=== PATIENT | female | born 1960 | race African-American/Black ===

== ENCOUNTER 2017-07-14 13:24 | Observation (INO) | payer BC, MEDICARE ==
[2017-07-14 15:40] LABS: ADD MAN DIFF? NO
[2017-07-14 15:42] LABS: WHITE BLOOD COUNT 5.1 10^3/ul (4.8-10.8)
[2017-07-14 15:42] LABS: BASOPHILS % 0.4 % (0.0-2.0); EOSINOPHILS # 0.1 10^3/ul (0.0-0.5); EOSINOPHILS % 1.2 % (0.0-7.0); HEMATOCRIT 38.3 % (37.0-47.0); HEMOGLOBIN 12.9 g/dl (12.0-16.0); LYMPHOCYTES # 2.3 10^3/ul (0.8-2.9); LYMPHOCYTES % 44.5 % (15.0-51.0); MEAN CORPUSCULAR HEMOGLOBIN 30.5 pg (29.0-33.0); MEAN CORPUSCULAR HGB CONC 33.7 g/dl (32.0-37.0); MEAN CORPUSCULAR VOLUME 90.5 fl (82.0-101.0); MEAN PLATELET VOLUME 9.9 fl (7.4-10.4); MONOCYTE # 0.6 10^3/ul (0.3-0.9); MONOCYTES % 11.9 % (0.0-11.0); NEUTROPHIL # 2.2 10^3/ul (1.6-7.5); PLATELET COUNT 229 10^3/UL (140-415); RED BLOOD COUNT 4.23 10^6/ul (4.20-5.40)
[2017-07-14] MEDS: ASPIRIN 325 MG TAB PO (16:02)
[2017-07-14 16:13] LABS: ALANINE AMINOTRANSFERASE 23 IU/L (13-69); ALBUMIN 4.2 g/dl (3.3-4.9); ALBUMIN/GLOBULIN RATIO 0.91; ALKALINE PHOSPHATASE 101 IU/L (42-121); ANION GAP 16 (8-16); ASPARTATE AMINO TRANSFERASE 31 IU/L (15-46); BILIRUBIN,INDIRECT 0.1 mg/dl (0-1.1); BILIRUBIN,TOTAL 0.1 mg/dl (0.2-1.3); BLOOD UREA NITROGEN 10 mg/dl (7-20); CALCIUM 9.2 mg/dl (8.4-10.2); CARBON DIOXIDE 28 mmol/L (21-31); CHLORIDE 107 mmol/L (97-110); CREATININE 0.69 mg/dl (0.44-1.00); GLUCOSE 104 mg/dl (70-220); POTASSIUM 3.9 mmol/L (3.5-5.1); SODIUM 147 mmol/L (135-144); TOTAL PROTEIN 8.8 g/dl (6.1-8.1)
[2017-07-14 16:27] LABS: TROPONIN-I < 0.012 ng/ml (0.00-0.12)
[2017-07-14] MEDS: NITROGLYCERIN 2% 1 GM OINT PKT TD (16:33)
[2017-07-14] MEDS: SOD CHLORIDE 0.45% 1,000 ML IV (17:59)
[2017-07-14] MEDS ORDERED: ONDANSETRON 4 MG INJ IV ×2 (18:00)
[2017-07-14] MEDS ORDERED: hydrALAzine 20 MG INJ IV (18:00)
[2017-07-14] MEDS ORDERED: NA PHOSPHATE/BIPHOS 133 ML ENEMA PR (18:00)
[2017-07-14] MEDS ORDERED: ACETAMINOPHEN 325 MG TAB PO ×2 (18:00)
[2017-07-14] MEDS ORDERED: MAGNESIUM HYDROXIDE 30ML CUP PO (18:00)
[2017-07-14] MEDS ORDERED: ALBUTEROL/IPRATROPIUM (NEB) 3 ML AMP HHN (18:00)
[2017-07-14] MEDS ORDERED: hydrOXYzine HCL 25 MG TAB PO (18:00)
[2017-07-14] MEDS ORDERED: DOCUSATE SODIUM 100 MG CAP PO (18:00)
[2017-07-14] MEDS ORDERED: NITROGLYCERIN (SL) 0.4 MG TAB SL (18:00)
[2017-07-14] MEDS ORDERED: NACL 0.9% 3 ML SYG IV (18:00)
[2017-07-14] MEDS ORDERED: LORAZEPAM 2 MG INJ IV (18:00)
[2017-07-14] MEDS ORDERED: HYDROCODONE/APAP (5/325) TAB PO (18:00)
[2017-07-14 18:43] LABS: FREE T4 (FREE THYROXINE) 1.09 ng/dl (0.64-1.79)
[2017-07-14] MEDS: HEPARIN 5,000 UNIT/0.5 ML VIAL SC (21:00)
[2017-07-14 22:48] LABS: CREATINE KINASE 86 IU/L (23-200)
[2017-07-14 23:00] LABS: CK INDEX 0.3
[2017-07-14 23:01] LABS: CK-MB < 0.22 ng/ml (0.0-2.4); TROPONIN-I < 0.012 ng/ml (0.00-0.12)
[2017-07-15] MEDS: PANTOPRAZOLE (EC) 40 MG TAB PO (06:01)
[2017-07-15 07:31] LABS: ADD MAN DIFF? NO
[2017-07-15 07:34] LABS: BASOPHILS % 0.5 % (0.0-2.0); EOSINOPHILS # 0.1 10^3/ul (0.0-0.5); EOSINOPHILS % 3.5 % (0.0-7.0); HEMATOCRIT 38.2 % (37.0-47.0); HEMOGLOBIN 12.5 g/dl (12.0-16.0); LYMPHOCYTES % 49.6 % (15.0-51.0); MEAN CORPUSCULAR HGB CONC 32.7 g/dl (32.0-37.0); MEAN CORPUSCULAR VOLUME 91.6 fl (82.0-101.0); MEAN PLATELET VOLUME 10.2 fl (7.4-10.4); MONOCYTE # 0.5 10^3/ul (0.3-0.9); MONOCYTES % 12.3 % (0.0-11.0); NEUTROPHIL # 1.4 10^3/ul (1.6-7.5); NEUTROPHILS % 34.1 % (39.0-77.0); PLATELET COUNT 214 10^3/UL (140-415); RED BLOOD COUNT 4.17 10^6/ul (4.20-5.40)
[2017-07-15] MEDS: morphine 2 MG INJ IV (07:34)
[2017-07-15 07:58] LABS: CREATINE KINASE 76 IU/L (23-200)
[2017-07-15 07:59] LABS: CHOL/HDL RATIO 3.1 RATIO; HDL CHOLESTEROL 39 mg/dl (35-98); LDL CHOLESTEROL,CALCULATED 68 mg/dl; TRIGLYCERIDES 78 mg/dl (0-149)
[2017-07-15 07:59] LABS: CHOLESTEROL 123 mg/dl (100-200)
[2017-07-15 08:00] LABS: ANION GAP 14 (8-16); BLOOD UREA NITROGEN 9 mg/dl (7-20); CALCIUM 8.9 mg/dl (8.4-10.2); CARBON DIOXIDE 26 mmol/L (21-31); CHLORIDE 109 mmol/L (97-110); GLUCOSE 90 mg/dl (70-220); MAGNESIUM 2.1 mg/dl (1.7-2.5); PHOSPHORUS 4.3 mg/dl (2.5-4.9); SODIUM 145 mmol/L (135-144)
[2017-07-15 08:06] LABS: HEMOGLOBIN A1C 5.7 % (0-5.9)
[2017-07-15 08:11] LABS: CK INDEX 0.3
[2017-07-15 08:21] LABS: CK-MB < 0.22 ng/ml (0.0-2.4); TROPONIN-I < 0.012 ng/ml (0.00-0.12)
[2017-07-15] MEDS: AMLODIPINE 10 MG TAB PO (09:00)
[2017-07-15] MEDS: HEPARIN 5,000 UNIT/0.5 ML VIAL SC ×2 (09:26→21:34)
[2017-07-15] MEDS: ASPIRIN (EC) 325 MG TAB PO (09:26)
[2017-07-15] MEDS: SOD CHLORIDE 0.45% 1,000 ML IV ×2 (09:34→21:28)
[2017-07-16] MEDS: PANTOPRAZOLE (EC) 40 MG TAB PO (05:59)
[2017-07-16 08:28] LABS: ADD MAN DIFF? NO
[2017-07-16 08:35] LABS: BASOPHILS % 0.8 % (0.0-2.0); EOSINOPHILS # 0.1 10^3/ul (0.0-0.5); EOSINOPHILS % 2.4 % (0.0-7.0); HEMATOCRIT 39.9 % (37.0-47.0); LYMPHOCYTES # 1.8 10^3/ul (0.8-2.9); LYMPHOCYTES % 48.3 % (15.0-51.0); MEAN CORPUSCULAR HEMOGLOBIN 29.7 pg (29.0-33.0); MEAN CORPUSCULAR HGB CONC 32.6 g/dl (32.0-37.0); MEAN CORPUSCULAR VOLUME 91.1 fl (82.0-101.0); MEAN PLATELET VOLUME 10.1 fl (7.4-10.4); MONOCYTE # 0.4 10^3/ul (0.3-0.9); NEUTROPHIL # 1.4 10^3/ul (1.6-7.5); NEUTROPHILS % 37.5 % (39.0-77.0); PLATELET COUNT 237 10^3/UL (140-415); RED BLOOD COUNT 4.38 10^6/ul (4.20-5.40); RED CELL DISTRIBUTION WIDTH 12.9 % (11.5-14.5)
[2017-07-16 08:35] LABS: WHITE BLOOD COUNT 3.7 10^3/ul (4.8-10.8)
[2017-07-16] MEDS: ASPIRIN (EC) 325 MG TAB PO (08:54)
[2017-07-16] MEDS: AMLODIPINE 10 MG TAB PO (08:54)
[2017-07-16] MEDS: HEPARIN 5,000 UNIT/0.5 ML VIAL SC (08:55)
[2017-07-16] MEDS: SOD CHLORIDE 0.45% 1,000 ML IV (08:56)
[2017-07-16 09:07] LABS: ANION GAP 14 (8-16); BLOOD UREA NITROGEN 6 mg/dl (7-20); CALCIUM 9.2 mg/dl (8.4-10.2); CARBON DIOXIDE 28 mmol/L (21-31); CHLORIDE 108 mmol/L (97-110); CREATININE 0.66 mg/dl (0.44-1.00); GLUCOSE 87 mg/dl (70-220); SODIUM 146 mmol/L (135-144)
== END 2017-07-16 16:20 | disposition home or self-care (01) ==
LOC: E/R 13:24 → MS4 17:32
DX: R07.89 Other chest pain (principal); I10 Essential (primary) hypertension; E66.9 Obesity, unspecified; Z68.41 Body mass index [BMI] 40.0-44.9, adult; Z79.82 Long term (current) use of aspirin; Z88.2 Allergy status to sulfonamides
CPT/HCPCS: 36415; 71045; 80048; 80053; 80061; 82550; 82553; 83036; 83735; 84100; 84439; 84443; 84484; 85025; 93005; 93306; 99285-25; G0378

== ENCOUNTER 2018-03-06 11:08 | Day surgery (SDC) | payer MEDICARE, BC ==
[2018-03-06] MEDS ORDERED: PROPOFOL 40 ML (13:32)
== END 2018-03-06 14:56 | disposition home or self-care (01) ==
LOC: GIL 11:08
DX: K29.70 Gastritis, unspecified, without bleeding (principal); K44.9 Diaphragmatic hernia without obstruction or gangrene; K21.9 Gastro-esophageal reflux disease without esophagitis; I10 Essential (primary) hypertension; E66.9 Obesity, unspecified; Z68.39 Body mass index [BMI] 39.0-39.9, adult
CPT/HCPCS: 43239; 88305

== ENCOUNTER 2018-04-09 10:45 | Emergency (ER) | payer MEDICARE, BC ==
[2018-04-09] MEDS ORDERED: LIDOCAINE 1% (MDV) 20 ML INJ SC (11:30)
== END 2018-04-09 12:36 | disposition home or self-care (01) ==
LOC: FTE 10:45
DX: N61.1 Abscess of the breast and nipple (principal); I10 Essential (primary) hypertension; E66.9 Obesity, unspecified; R40.2412 Glasgow coma scale score 13-15, at arrival to emergency department; Z79.82 Long term (current) use of aspirin
CPT/HCPCS: 10060; 99283-25

== ENCOUNTER 2018-04-11 06:58 | Emergency (ER) | payer MEDICARE, BC | END 2018-04-11 07:40 | disposition home or self-care (01) | LOC: FTE 06:58 | DX: Z48.01 Encounter for change or removal of surgical wound dressing (principal); E66.9 Obesity, unspecified; I10 Essential (primary) hypertension; N61.1 Abscess of the breast and nipple; Z79.82 Long term (current) use of aspirin | CPT/HCPCS: 99281 ==